=== PATIENT | female | born 1990 | race African-American/Black ===

== ENCOUNTER 2017-02-27 17:16 | Emergency (ER) | payer OTHER ==
[~2017-02-27] VITALS: Ht 157.5 cm; Wt 117.5 kg
[~2017-02-27 17:16] MED LIST: ADVIL200 MG PO; COLACE100 MG PO; DESYREL100 MG PO; DOXYCYCLINE MO100 M1 PO; LEXAPRO20 MG PO; Motrin PO; NAPROSYN500 MG PO; NOHOMEMEDS; PERCOCET 5/31 TABLET PO; TRAMADOL HCL50 MG PO
[2017-02-27 18:26] LABS: HEMATOCRIT 39.8 % (36.0-46.0); MCH 26.6 PG (29.0-34.0); MCHC 31.2 G/DL (30.0-36.0); MCV 85.2 FL (83-99); MEAN PLAT.VOLUME 9.7 uM^3 (9.5-12.4); PLATELET COUNT 211 K/uL (156-360); RBC DIS.WIDTH-CV 14.4 % (11.8-14.6); RED BLOOD COUNT 4.67 M/uL (3.80-5.20); WHITE BLOOD COUNT 4.6 K/uL (4.1-10.2)
[2017-02-27 18:35] LABS: CHLORIDE 105 mEq/L (99-109); POTASSIUM 4.3 mEq/L (3.7-5.4); SODIUM 138 mEq/L (136-147)
[2017-02-27 18:37] LABS: GLUCOSE 83 mg/dL (70-99)
[2017-02-27 18:38] LABS: ANION GAP 7 MEQ/L (2-14)
[2017-02-27 18:41] LABS: GFR ESTIMATE (CALCULATED) > 59 mL/min/; UREA NITROGEN (BUN) 11 mg/dL (9-23)
[2017-02-27 20:31] LABS: QUANTITATIVE HCG < 4.0 MIU/ML
[2017-02-27 20:39] LABS: TROP-I INTERPRETATION NEGATIVE; TROPONIN-I < 0.01 ng/mL (0.0-0.30)
[2017-02-27 20:46] LABS: ADD MIUA? YES; BILIRUBIN NEGATIVE; BLOOD NEGATIVE; COLOR YELLOW ((YELLOW)); GLUCOSE (STRIP) NEGATIVE; KETONES NEGATIVE; LEUKOCYTES LARGE; NITRITE NEGATIVE; PROTEIN (STRIP) 30; SPECIFIC GRAVITY 1.021 (1.000-1.030); UROBILINOGEN 0.2 MG/DL (0.2-1.0)
[2017-02-27 20:53] LABS: BACTERIA RARE /HPF; EPITHELIAL CELLS 1+ /HPF; MUCUS TRACE /LPF; RED BLOOD CELLS 0-5 /HPF (0-5); UCUL ADDED? NO; WHITE BLOOD CELLS 0-5 /HPF (0-5)
[2017-02-27 21:03] LABS: AMPHETAMINE NEGATIVE (500 ng/mL); BARBITURATES NEGATIVE (200 ng/mL); BENZODIAZEPINES NEGATIVE (150 ng/mL); COCAINE NEGATIVE (150 ng/mL); INTERNAL CONTROLS VALID? YES; METHADONE NEGATIVE (200 ng/mL); METHAMPHETAMINE NEGATIVE (500 ng/mL); OPIATES (MORPHINE) NEGATIVE (100 ng/mL); OXYCODONE NEGATIVE (100 ng/mL); PHENCYCLIDINE NEGATIVE (25 ng/mL); PROPOXYPHENE NEGATIVE (300 ng/mL); THC CANNABINOIDS NEGATIVE (50 ng/mL); TRICYCLIC ANTIDEPRESSANTS NEGATIVE (300 ng/mL)
[2017-02-27 21:34] VITALS: BP 130/95
== END 2017-02-27 21:35 | disposition home or self-care (01) ==
LOC: EME 17:16
PROVIDERS: Physician Assistant
DX: R42 Dizziness and giddiness (principal); S00.83XA Contusion of other part of head, initial encounter; W22.8XXA Striking against or struck by other objects, initial encounter; Y92.009 Unspecified place in unspecified non-institutional (private) residence as the place of occurrence of the external cause
CPT/HCPCS: 70150; 70450; 71020; 80048; 81003; 84484; 84702; 85027; 93005; 99281; 99284

== ENCOUNTER 2018-04-15 05:49 | Day surgery (SDC) | payer OTHER ==
[~2018-04-15] VITALS: Ht 157.5 cm; Wt 108.9 kg
[~2018-04-15 05:49] MED LIST changes: +EXCEDRIN MIGRA1 EAC3 PO
[2018-04-15 06:25] VITALS: BP 124/76
[2018-04-15 09:18] VITALS: BP 117/68
[2018-04-15 10:14] VITALS: BP 115/76
== END 2018-04-15 10:15 | disposition home or self-care (01) ==
LOC: SDC 05:49
PROC: 0UBC7ZX Excision of Cervix, Via Natural or Artificial Opening, Diagnostic (ICD-10-PCS; principal; 2018-04-15)
DX: D06.0 Carcinoma in situ of endocervix (principal); F41.9 Anxiety disorder, unspecified; F31.9 Bipolar disorder, unspecified; E66.01 Morbid (severe) obesity due to excess calories; Z68.41 Body mass index [BMI] 40.0-44.9, adult; K43.9 Ventral hernia without obstruction or gangrene
CPT/HCPCS: 88305; J0131; J0690; J1100; J1885; J2250; J2405; J2765; J3010

== ENCOUNTER 2018-04-20 07:57 | Emergency (ER) | payer OTHER ==
[~2018-04-20] VITALS: Ht 157.5 cm; Wt 109.5 kg
[2018-04-20 08:38] LABS: BASOPHIL (%) 0.6 % (0-1); EOSINOPHIL (%) 2.9 % (0-5); EOSINOPHIL COUNT 0.2 K/uL (0-0.3); HEMATOCRIT 35.9 % (36.0-46.0); HEMOGLOBIN 11.6 G/DL (11.9-15.5); IMMATURE GRANULOCYTE (%) 0.2 % (0.0-0.7); LYMPHOCYTE (%) 35.4 % (15-42); LYMPHOCYTE COUNT 2.2 K/uL (1.0-2.8); MCHC 32.3 G/DL (30.0-36.0); MCV 86.7 FL (83-99); MONOCYTE (%) 12.9 % (3-12); MONOCYTE COUNT 0.8 K/uL (0-0.8); PLATELET COUNT 206 K/uL (156-360); RBC DIS.WIDTH-CV 12.6 % (11.8-14.6); RBC DIS.WIDTH-SD 40.4 % (39-53); RED BLOOD COUNT 4.14 M/uL (3.80-5.20); WHITE BLOOD COUNT 6.3 K/uL (4.1-10.2)
[2018-04-20 08:48] LABS: ALBUMIN 3.9 g/dL (3.2-4.8)
[2018-04-20 08:49] LABS: CHLORIDE 105 mEq/L (99-109); POTASSIUM 4.1 mEq/L (3.7-5.4); SODIUM 138 mEq/L (136-147)
[2018-04-20 08:51] LABS: GLUCOSE 90 mg/dL (70-99); TOTAL PROTEIN 7.5 g/dL (6.4-8.3)
[2018-04-20 08:53] LABS: TOTAL BILIRUBIN 0.4 mg/dL (0.0-1.0)
[2018-04-20 08:54] LABS: ALKALINE PHOSPHATASE 62 IU/L (3-129)
[2018-04-20 08:54] LABS: APPEARANCE CLEAR ((CLEAR)); BILIRUBIN NEGATIVE; BLOOD SMALL; COLOR YELLOW ((YELLOW)); GLUCOSE (STRIP) NEGATIVE; KETONES NEGATIVE; LEUKOCYTES LARGE; NITRITE NEGATIVE; PROTEIN (STRIP) NEGATIVE; SPECIFIC GRAVITY 1.021 (1.000-1.030)
[2018-04-20 08:55] LABS: CREATININE 0.9 mg/dL (0.6-1.3); GFR ESTIMATE (CALCULATED) > 59 mL/min/
[2018-04-20 08:56] LABS: AST (GOT) 16 IU/L (2-34); UREA NITROGEN (BUN) 10 mg/dL (9-23)
[2018-04-20 08:57] LABS: ALT (GPT) 8 IU/L (3-49)
[2018-04-20 08:57] LABS: BACTERIA RARE /HPF; EPITHELIAL CELLS 1+ /HPF; MUCUS TRACE /LPF; RED BLOOD CELLS 20-30 /HPF (0-5); WHITE BLOOD CELLS 30-40 /HPF (0-5)
[2018-04-20 08:58] LABS: LIPASE 24 U/L (1.0-51.0)
[2018-04-20 09:05] LABS: QUANTITATIVE HCG < 4.0 MIU/ML
[2018-04-20] MEDS ORDERED: BENTYL20 MG PO (11:18)
[2018-04-20] MEDS ORDERED: PRILOSEC OTC20 MG PO (11:18)
[2018-04-20 11:51] VITALS: BP 134/84
== END 2018-04-20 11:59 | disposition home or self-care (01) ==
LOC: EME 07:57
PROVIDERS: Emergency Medicine
DX: N39.0 Urinary tract infection, site not specified (principal); Z98.890 Other specified postprocedural states; F31.9 Bipolar disorder, unspecified
CPT/HCPCS: 76705; 80053; 81003; 83690; 84702; 85025; 99281; 99285; J2270; J2405; J7030